=== PATIENT | male | born 1945 | race Caucasian/White ===

== ENCOUNTER 2016-12-13 16:01 | Emergency (ER) | payer OTHER ==
[2016-12-13 16:25] LABS: URINE MUCUS NONE SEEN (Up to 25%)
[2016-12-13 16:30] LABS: URINE APPEARANCE CLOUDY; URINE COLOR ORANGE; URINE NITRITE POSITIVE (NEGATIVE); URINE SPECIFIC GRAVITY > OR = 1.030 (0.001-1.035)
[2016-12-13 16:31] LABS: URINE BACTERIA >50 ORGANISMS/hpf (<10/hpf); URINE BILIRUBIN 0.5 mg/100ml (1+) (NEGATIVE); URINE BLOOD 250 Ery/uL (3+) (NEGATIVE); URINE GLUCOSE 100mg/dL (NEGATIVE); URINE KETONE 100mg/dL (3+) (NEGATIVE); URINE PROTEIN 300mg/dL (3+) (NEG - TRACE); URINE SQUAMOUS EPITHELIAL CELL 0-5/hpf (<= 15/hpf); URINE UROBILINOGEN NORMAL (NEG-1mg/dL)
[2016-12-13 16:33] LABS: URINE LEUKOCYTE ESTERASE 500 WBC/uL (3+) (NEGATIVE)
[2016-12-13] MEDS ORDERED: cefTRIAXone SODIUM 1,000 MG/10 ML VIAL ONE (16:35)
[2016-12-13] MEDS ORDERED: NORMAL SALINE MINI-BAG+ 100 ML IV ONE (16:36)
[2016-12-13 16:44] LABS: BASOPHIL# 0.1 X 10^3uL (0.0-0.1); BASOPHILS 0.4 % (0.0-2.0); HEMATOCRIT 48.3 % (42.0-54.0); HEMOGLOBIN 17.1 g/dL (14.0-18.0); LYMPHOCYTES 2.9 % (20.0-40.0); LYMPHOCYTES# 0.5 X 10^3uL (0.8-3.8); MEAN CELL VOLUME 87.2 fL (80.0-100.0); MEAN CORPUS. HGB CONCENTRATION 35.3 g/dL (32.0-36.0); MEAN CORPUSCULAR HEMOGLOBIN 30.8 pg (29.0-35.0); MEAN PLATELET VOLUME 7.7 fL (7.4-10.4); MONOCYTES 2.6 % (2.0-10.0); MONOCYTES# 0.4 X 10^3uL (0.2-1.0); NEUTROPHILS# 16.2 X 10^3uL (2.6-6.7); PLATELET COUNT 234 X 10^3uL (130-440); RED BLOOD COUNT 5.54 X 10^6uL (4.20-6.10); RED CELL DISTRIBUTION WIDTH 13.2 % (11.5-14.5); WHITE BLOOD COUNT 17.2 X 10^3uL (3.9-10.7)
[2016-12-13 16:49] LABS: BLOOD UREA NITROGEN 24 mg/dL (9-20); CALCIUM 9.1 mg/dL (8.4-10.2); CHLORIDE 100 mmol/L (98-107); CREATININE 1.1 mg/dL (0.7-1.3); EST GLOMERULAR FILTRATION RATE > 60 mL/min; GLUCOSE 183 mg/dL (70-100); POTASSIUM 4.3 mmol/L (3.5-5.1); SODIUM 135 mmol/L (137-145)
[2016-12-13 17:01] LABS: NEUTROPHILS 94.1 % (54.0-75.0)
[2016-12-13] MEDS ORDERED: PHENAZOPYRIDINE 100 MG TABLET PO ONE (17:25)
[2016-12-13] MEDS ORDERED: HYDROcodone/APAP PREPAC 5/325 1 TAB TABLET PO ONE (17:25)
--- NOTE | 2016-12-13 17:25 | ER NURSING DOCUMENTATION ---
Nurse's Notes [facility] Name:Michele Mina Age:71 yrs Sex:Male :1945 Arrival Date:12/13/2016 Time:16:01 Bed3 Private MD: Diagnosis:Bladder Infection (UTI) Presentation: 12/13 16:14 Presenting complaint: Patient states: UTI symptoms and pain for 2-3 days worsening last sc1 night. Pt. states he is having some bloody urine, also. Transition of care: Home. Notified ED Physician of patient's arrival and CC Erlin Baltazar notified. 16:14 Acuity: BONI 3 sc1 16:14 Method Of Arrival: Private Vehicle sc1 Triage Assessment: 16:17 General: Appears in no apparent distress, well developed, well nourished, well groomed, sc1 Behavior is cooperative, pleasant. Pain: Complains of pain in suprapubic area. GI: No deficits noted. Historical: - Allergies: No known drug Allergies; - Home Meds: 1. levothyroxine oral - PMHx: None; - PSHx: Appendectomy; - Tetanus: < 10 years. - Ebola Screening: : Patient negative for fever greater than or equal to 101.5 degrees Fahrenheit, and additional compatible Ebola Virus Disease symptoms. Patient denies exposure to infectious person. Patient denies travel to an Ebola-affected area in the 21 days before illness onset. No symptoms or risks identified at this time. . - Immunization history: Pneumococcal vaccine is up to date, Flu Vaccine < 1 year. - Social history: Smoking status: Patient states former smoker of tobacco. Patient/guardian denies using alcohol, street drugs, IV drugs, marijuana. Screenin:18 Infectious Disease Risk None. Abuse screen: Denies threats or abuse. Nutritional sc1 screening: No deficits noted. Vital Signs: 16:09 BP 151 / 69; jt 17:22 BP 121 / 67; Pulse 92; Resp 16; Pulse Ox 92% ; jt ED Course: 16:06 Patient arrived in ED. ma1 16:12 Temo Kern MD is Attending Physician. jm 16:14 Meghan Spear, RN is Primary Nurse. sc1 16:15 Triage completed. sc1 16:17 Notified ED Physician of patient's arrival and chief complaint. Dr. Kern notified. Arm sc1 band placed on Bed in low position Call Light in Reach Gowned HOB Elevated Side rails up x1. Urine obtained. 17:25 Valuables Remains with patient. tn1 Administered Medications: 16:34 Drug: NS 0.9% 1000 ml; Route: IV; Rate: bolus; Site: left antecubital; Delivery: sc1 [place] Tubing; 17:52 Follow up: IV Status: Completed infusion; IV Intake: 1000ml [facility] 16:36 Drug: Rocephin 1 grams; Route: IVPB; Site: left antecubital; Delivery: [place] Tub[place]; [facility] 17:05 Follow up: IV Status: Completed infusion; IV Intake: 100ml [facility] 17:06 Follow up: Response: No adverse reaction [facility] 17:19 Drug: Pyridium - Phenazopyridine 200mg 200 mg; Route: PO; [facility] 17:52 Follow up: Response: Pharmacy closed - take home med pack [facility] 17:19 Drug: Pyridium 200 mg; Route: PO; [facility] 17:53 Follow up: Response: Medication administered at discharge. [facility] 17:19 Drug: HYDROcodone-acetaminophen (5mg/325 mg) 1-2 tabs 1 tabs; Route: PO; [facility] 17:53 Follow up: Response: Pharmacy closed - take home med pack [facility] Point of Care Testing: Urine Dip: 16:14 pH: 5; ; Specific [place]: 1.03; Ketones: Large; Glucose: Positive; Protein: Positive jt (+++); Leukocytes: Positive; Nitrite: Positive (+) ; Blood: Large (+++); Bilirubin: Small (+) ; Urobilinogen: Normal Intake: 17:05 IV: 100ml; Total: 100ml. tn1 17:52 IV: 1000ml; Total: 1100ml. [facility] Outcome: 16:47 Discharge ordered by . ramon 17:25 Patient left the ED. [facility] 17:25 Discharged to home ambulatory. [facility] 17:25 Condition: improved 17:25 Discharge instructions given to patient, Instructed on discharge instructions, follow up and referral plans. medication usage, Demonstrated understanding of instructions, medications, Prescriptions given X 1. Signatures: Meghan Spear RN RN [facility] Temo Kern MD MD jm Tennant, Joanne jt Addison, Melissa [facility]
--- NOTE | 2016-12-13 17:25 | ER PHYSICIAN DOCUMENTATION ---
Physician Documentation [facility] Name:Michele Mina Age:71 yrs Sex:Male :1945 Arrival Date:12/13/2016 Time:16:01 Bed3 Private MD: Temo Proctor Disposition: 12/13/16 16:47 Discharged to Home/Self Care. Impression: Bladder Infection (UTI). - Condition is Good. - Discharge Instructions: BLADDER INFECTION, Male (Adult). - Prescriptions for Keflex 500 mg Oral - take 1 capsule by ORAL route every 12 hours for 14 days; 28 capsule. - Medical Reconciliation form form. - Follow up: Private Physician; When: 2 weeks for a urine recheck; Reason: Recheck today's complaints. - Problem is new. - Symptoms have improved. HPI: 12/13 17:38 This 71 yrs old Male presents to ER via Private Vehicle with complaints of jm Abdominal Pain, Vomiting. 16:30 Associated signs and symptoms: Pertinent positives: dysuria. No fever or back pain. jm 17:38 The patient presents with abdominal pain in the lower abdomen. Onset: The jm symptoms/episode began/occurred today. The symptoms do not radiate. The symptoms are described as crampy. Severity of pain: in the emergency department the pain is a 5 / 10. The patient has not experienced similar symptoms in the past. Historical: - Allergies: No known drug Allergies; - Home Meds: 1. levothyroxine oral - PMHx: None; - PSHx: Appendectomy; - Tetanus: < 10 years. - Ebola Screening: : Patient negative for fever greater than or equal to 101.5 degrees Fahrenheit, and additional compatible Ebola Virus Disease symptoms. Patient denies exposure to infectious person. Patient denies travel to an Ebola-affected area in the 21 days before illness onset. No symptoms or risks identified at this time. . - Immunization history: Pneumococcal vaccine is up to date, Flu Vaccine < 1 year. - Social history: Smoking status: Patient states former smoker of tobacco. Patient/guardian denies using alcohol, street drugs, IV drugs, marijuana. ROS: 16:30 : Positive for urinary symptoms, pelvic pain. jm 16:30 Abdomen/GI: Positive for abdominal pain, nausea. jm 16:30 Back: Negative for pain with movement, radiated pain. 17:38 Constitutional: Negative for body aches, chills, fever. Exam: 16:30 Constitutional: The patient appears alert, awake, comfortable. 16:30 Cardiovascular: Rhythm: regular, Pulses: no pulse deficits are appreciated. 16:30 Respiratory: Respirations: normal, Breath sounds: are normal. 16:30 Abdomen/GI: Bowel sounds: normal, Palpation: mild abdominal tenderness, in the suprapubic area. 16:30 : CVA tenderness, is absent, Bladder: tenderness, that is mild. Vital Signs: 16:09 BP 151 / 69; jt 17:22 BP 121 / 67; Pulse 92; Resp 16; Pulse Ox 92% ; jt MDM: 16:11 Patient medically screened. 16:30 Differential diagnosis: urinary tract infection. Data reviewed: vital signs, nurses notes, old medical records, lab test result(s), urinalysis, bacteruria, hematuria, pyuria, and as a result, I will discharge patient, administer antibiotics. Counseling: I had a detailed discussion with the patient and/or guardian regarding: the historical points, exam findings, and any diagnostic results supporting the discharge/admit diagnosis, lab results, the need for outpatient follow up, with the patient's primary care provider. ED course: Pt w rip-roaring UTI. Pt given rocephin and sent home on 2 weeks of keflex. Pt can f/u at [place] in 2 week for a recheck. . 12/13 16:34 Order name: UA W/ MICRO -CULTURE IF IND; Complete Time: 17:04 EDMT 12/13 16:50 Order name: BASIC METABOLIC PANEL; Complete Time: 17:04 EDMT 12/13 17:02 Order name: CBC AUTO DIF, MDIF/RMOR IF IND; Complete Time: 17:04 EDMT 12/14 07:45 Order name: URINE CULTURE EDMT 12/15 08:40 Order name: NEGATIVE SENSITIVITY PANEL [facility] 12/13 16:29 Order name: Iv Saline Lock; Complete Time: 16:37 12/13 16:29 Order name: Pulse Ox Continuous; Complete Time: 16:37 Dispensed Medications: 16:34 Drug: NS 0.9% 1000 ml; Route: IV; Rate: bolus; Site: left antecubital; Delivery: sc1 [place] Tubing; 17:52 Follow up: IV Status: Completed infusion; IV Intake: 1000ml [facility] 16:36 Drug: Rocephin 1 grams; Route: IVPB; Site: left antecubital; Delivery: [place] Tub[place]; [facility] 17:05 Follow up: IV Status: Completed infusion; IV Intake: 100ml [facility] 17:06 Follow up: Response: No adverse reaction [facility] 17:19 Drug: Pyridium - Phenazopyridine 200mg 200 mg; Route: PO; [facility] 17:52 Follow up: Response: Pharmacy closed - take home med pack [facility] 17:19 Drug: Pyridium 200 mg; Route: PO; [facility] 17:53 Follow up: Response: Medication administered at discharge. [facility] 17:19 Drug: HYDROcodone-acetaminophen (5mg/325 mg) 1-2 tabs 1 tabs; Route: PO; [facility] 17:53 Follow up: Response: Pharmacy closed - take home med pack [facility] Point of Care Testing: Urine Dip: 16:14 pH: 5; ; Specific [place]: 1.03; Ketones: Large; Glucose: Positive; Protein: Positive jt (+++); Leukocytes: Positive; Nitrite: Positive (+) ; Blood: Large (+++); Bilirubin: Small (+) ; Urobilinogen: Normal Signatures: Meghan Spear RN RN la1 Temo Kern MD MD
== END 2016-12-13 17:25 | disposition home or self-care (01) ==
LOC: ER 16:01
DX: N39.0 Urinary tract infection, site not specified (principal); B96.20 Unspecified Escherichia coli [E. coli] as the cause of diseases classified elsewhere; R11.0 Nausea
CPT/HCPCS: 80048; 81001; 85025; 87077; 87086; 87186; 96361; 96365; 99283; J0696